=== PATIENT | male | born 1985 | race Caucasian/White ===

== ENCOUNTER 2021-10-12 01:26 | Emergency (ER) | payer MEDICAID ==
[~2021-10-12] VITALS: Ht 170.2 cm; Wt 72.6 kg
[2021-10-12 01:30] VITALS: BP_SYST 150
--- NOTE | 2021-10-12 01:48 | NUR ---
PT BIB [facility] FOR [facility]H. PT WAS FOUND IN BATHROOM BY . CALLED 911. MEDICS HAD TO CARRY HIM TO [facility] AND BR BROUGHT HERE. PT IS ASLEEP NOW. VSS.
[2021-10-12] MEDS ORDERED: FOLIC ACID 1 MG, THIAMINE HCL 100 MG, MAGNESIUM SULFATE 1 GM, MVI 10 ML in NACL 0.9% 1,... IV ONE (02:00)
[2021-10-12] MEDS ORDERED: NACL 0.9% 1,000 ML IV ONE (02:00)
--- NOTE | 2021-10-12 02:10 | NUR ---
UPON STARTING THE IV PT STATED HE IS "DEATHLY" AFRAID OF NEEDLES AND HAD A WHAT SEEMS LIKE A VASO VAGAL RESPONSE. 1MG OF ATIVAN GIVEN IM TO LEFT DELTOID AND 1MG ATIVAN GIVEN THROUGH IV. PT RESPONDED APPROPRIATELY.
[2021-10-12] MEDS ORDERED: LORazepam 2 MG/ML VIAL IVP ONE ×2 (02:15)
--- NOTE | 2021-10-12 02:20 | NUR ---
XR AT BEDSIDE
[2021-10-12] MEDS ORDERED: MVI 10 ML VIAL IV ONE (02:21)
[2021-10-12] MEDS ORDERED: THIAMINE HCL 100 MG/ML VIAL ONE (02:21)
[2021-10-12] MEDS ORDERED: FOLIC ACID 5 MG/ML VIAL IV ONE (02:21)
[2021-10-12] MEDS ORDERED: MAGNESIUM SULFATE 1 GM/2 ML VIAL ONE (02:21)
--- NOTE | 2021-10-12 02:23 | NUR ---
# 20 gauge angiocath placed to LAC. Use of asceptic technique. Opsite placed over site. Blood return noted. Blood for lab drawn from site. Flushed with 10 cc of normal saline. No evidence of infiltration noted. Patient tolerated well.
[2021-10-12 03:16] LABS: WHITE BLOOD COUNT (AUTO) 9.4 K/uL (4.8-10.8)
[2021-10-12 03:17] LABS: HEMOGLOBIN 16.4 g/dL (14.0-18.0); LYMPHOCYTES % (AUTO) 22.4 % (20.5-51.5); MEAN CORPUSCULAR HEMOGLOBIN 30 pg (27-31); MEAN CORPUSCULAR HGB CONC 35 % (32-36); MEAN CORPUSCULAR VOLUME 85 fL (79.0-98.0); NEUTROPHILS % (AUTO) 71.3 % (40.0-70.0); PLATELET COUNT (AUTO) 263 K/uL (130-430); RED BLOOD CELL COUNT(AUTO) 5.56 MIL/uL (4.2-6.2); RED CELL DISTRIBUTION WIDTH 13.5 % (9.0-15.0)
[2021-10-12 03:18] LABS: BASOPHILS % (AUTO) 0.2 % (0.0-2.0); EOSINOPHILS # (AUTO) 0.1 K/uL (0.0-0.4); EOSINOPHILS % (AUTO) 0.6 % (0.0-4.0); LYMPHOCYTES # (AUTO) 2.1 K/uL (1.0-5.5); MONOCYTES # (AUTO) 0.5 K/uL (0.0-1.0); MONOCYTES % (AUTO) 5.5 % (1.7-9.3); NEUTROPHILS # (AUTO) 6.7 K/uL (1.8-7.7)
--- NOTE | 2021-10-12 04:30 | NUR ---
pt is sleeping in bed, vss
[2021-10-12 06:07] LABS: CALCIUM 8.9 mg/dL (8.4-11.0); CREATININE 1.15 mg/dL (0.55-1.30); POTASSIUM 3.4 mmol/L (3.5-5.1)
[2021-10-12 06:08] LABS: ALBUMIN 4.3 g/dL (3.4-4.8); TOTAL BILIRUBIN 0.6 mg/dL (0.0-1.0)
--- NOTE | 2021-10-12 06:57 | NUR ---
Patient transported to radiology via wheelchair, accompanied by tech.
--- NOTE | 2021-10-12 07:07 | NUR ---
report given to RUBÉN MCKNIGHT
--- NOTE | 2021-10-12 07:21 | NUR ---
PT AWAKE, ALEERT, ORIENTED X4, SITTING ON GUERNEY. DENIES ANY PAIN OR DIZZINESS AT THIS TIME. VSS. [facility] FOR FURTHER TEST RESULTS. REYMUNDO ERWIN MADE AWARE. SAFETY PRECAUTIONS IN PLACE.
[2021-10-12] MEDS ORDERED: LORA-259 PO (08:07)
--- NOTE | 2021-10-12 08:13 | NUR ---
Patient given written and verbal discharge instructions and verbalizes understanding. ER MD discussed with patient the results and treatment provided. Patient in stable condition. ID arm band removed. Rx of ATIVAN given. Patient educated on pain management and to follow up with PMD. Pain Scale . Opportunity for questions provided and answered. Medication side effect fact sheet provided.
[2021-10-12 08:15] VITALS: BP_SYST 134
== END 2021-10-12 08:15 | disposition home or self-care (01) ==
LOC: SED 01:26
DX: R55 Syncope and collapse (principal); F10.129 Alcohol abuse with intoxication, unspecified; Y90.6 Blood alcohol level of 120-199 mg/100 ml; Z79.899 Other long term (current) drug therapy
CPT/HCPCS: 36415; 70450; 71045; 76376; 80053; 82962; 83735; 83880; 84484; 85025; 93005; 96365; 96375; 99285; G0482; J3411; J3475; J3490